=== PATIENT | female | born 1935 | race Caucasian/White ===

== ENCOUNTER 2017-06-23 06:47 | Day surgery (SDC) | payer OTHER ==
[2017-06-15 11:54] VITALS: BMI 27.1
[2017-06-23] MEDS ORDERED: PROPOFOL 20 ML ONE ×2 (08:30)
[2017-06-23] MEDS ORDERED: MIDAZOLAM HCL 2 MG/2 ML SINGLE DOSE VIAL ONE (08:45)
[2017-06-23] MEDS ORDERED: DEXAMETHASONE SOD PHOSPHATE/PF 10 MG/ML SDV ONE (08:45)
[2017-06-23] MEDS ORDERED: BUPIVACAINE HCL/PF (5 MG/ML) 30 ML VIAL IJ ONE ×2 (08:45→10:33)
[2017-06-23] MEDS ORDERED: DEXAMETHASONE SOD PHOSPHATE 4 MG/1 ML VIAL ONE (09:32)
[2017-06-23] MEDS ORDERED: ceFAZolin SODIUM 1 GM VIAL ONE (09:32)
[2017-06-23] MEDS ORDERED: ONDANSETRON 4 MG/2 ML VIAL ONE (09:32)
[2017-06-23] MEDS ORDERED: NEOSTIGMINE METHYLSULFATE 0.5 MG/ML - 10 ML MDV ONE (10:24)
[2017-06-23] MEDS ORDERED: GLYCOPYRROLATE 0.2 MG/1 ML VIAL ONE (10:24)
[2017-06-23] MEDS ORDERED: BUPIVACAINE HCL/PF 0.5% (5MG/ML) 10 ML VIAL ONE (10:33)
[2017-06-23] MEDS ORDERED: IPRATROPIUM BR 0.02% 0.5 MG/2.5 ML VIAL.NEB. NEB ONE (10:49)
[2017-06-23] MEDS ORDERED: ALBUTEROL SO4 0.083% IH SOL 2.5 MG/3 ML VIAL.NEB. NEB ONE (10:49)
[2017-06-23] MEDS ORDERED: ONDANSETRON 4 MG/2 ML VIAL IVPUSH PRN (11:14)
[2017-06-23] MEDS ORDERED: oxyCODONE HCL 5 MG TABLET PO PRN (11:14)
[2017-06-23] MEDS ORDERED: LACTATED RINGERS SOLUTION 1,000 ML IV SCH (11:15)
--- NOTE | 2017-06-23 11:19 | OP ---
DATE OF OPERATION: 06/23/2017 PREOPERATIVE DIAGNOSIS: Large left inguinal hernia. POSTOPERATIVE DIAGNOSIS: Large left inguinal hernia. PROCEDURE: Open left inguinal hernia repair with mesh, left-sided component separation, 8-cm intermediate wound closure. SURGEON: Michele Toure MD GLAZE WIPER: Immanuel Bhakta MD ANESTHESIA: Carmen Saldivar MD (General). ESTIMATED BLOOD LOSS: Minimal. SPECIMEN: Hernia sac and remnant of round ligament. ESTIMATED BLOOD LOSS: Minimal. INDICATION FOR PROCEDURE: This is an 82-year-old female who is known to have a very large left inguinal hernia. She has had this for many, many years and now has become very symptomatic from this large mass, and she has pain in the area. She wishes to have this repaired. On physical examination, she has a large hernia that was able to be reduced with difficulty in the operating room after anesthesia, but the hernia prior to reduction was over the size of a softball. She is here for repair. DESCRIPTION OF PROCEDURE: The patient was identified and appropriately positioned on the operating room table. After placement of general anesthesia, the abdomen and both groins were prepped and draped in the usual sterile fashion with ChloraPrep. An 8-cm left inguinal incision was made and deepened to subcutaneous tissue. The Victorino was divided sharply. The fascia of the external oblique was divided in the direction of its fibers. The ilioinguinal nerve was identified and retracted laterally. There was a very large hernia identified, and it was reduced back into the operative field and pulled out of the groin with blunt and sharp dissection. The sac itself was then taken back all the way down to the level of the internal ring. The internal ring and inguinal floor is markedly attenuated and essentially nonexistent. This clearly was an indirect inguinal hernia sac. She also has a small direct inguinal hernia as well. Due to the very large nature of the sac, it was opened, and the patient had a slider. The attached component of small bowel to the sac wall itself was sharply divided and reduced back beneath the internal ring. The sac was then suture ligated under direct vision with a 2-0 Prolene suture. The sac itself excised. The round ligament was then clamped and tied off with 0 chromic sutures. The specimen was then handed off as port remnant of round ligament, portion of hernia sac. As mentioned earlier, the inguinal floor was essentially nonexistent, and the epigastric vessels identified and retracted inferiorly. The preperitoneal space was then subsequently developed, and due to the generous nature of this defect itself, the diameter is greater than 4.5 to 5 cm; therefore, a Marlex mesh plug was placed into this space. The plug was then anchored with interrupted 0 Prolene sutures. Due to the defect and closing the inguinal floor closing portions of the rectus over , I had to perform a myofascial separation (component separation) to separate off the obliques from the transversus and the junction of the rectus. This was done by lifting the external obliques as well as the internal obliques, and the fascial plan was then subsequently developed medially and brought into the junction of the rectus. At this point, the fascia was then divided with the cautery to allow mobilization of the transversus laterally. The inguinal floor was then reapproximated with 2 layers using attenuated transversus/transversalis fascia, and the inguinal floor was then closed. Due to the generous nature and poor integrity of the floor, a piece of Versatex ProGrip was used on top of the transversus and transversalis fascia. This mesh was cut to the appropriate size, barbs placed on the transversus, and the inguinal nerve root turned to its anatomic position. The fascia of the external oblique was reapproximated with running 3-0 Vicryl suture. Victorino was reapproximated with interrupted inverted 3-0 Vicryl suture and the skin closed with 4-0 Biosyn. Length of the incision approximately 8 cm. At the conclusion of this case, sponge and instrument counts were correct. ATTESTATION: Brief operative note handwritten on the preprinted form. [facility] will be queried prior to giving any narcotics. Warren ASHLEY [id number] cc: Kandy Caceres MD [address] [place] [address]
[2017-06-23] MEDS ORDERED: ALBUTEROL SO4 2.5/IPRATROPIUM 0.5 INH SOL 3 ML VIAL.NEB. NEB PRN (11:30)
[2017-06-23] MEDS ORDERED: ACETAMINOPHEN 325 MG TABLET (FP) ONE ×2 (13:15→19:09)
[2017-06-23] MEDS ORDERED: ACETAMINOPHEN 325 MG TABLET (FP) PO PRN (20:11)
[2017-06-24 06:36] VITALS: BP 133/75; PULSE 93; TEMP 98.7
--- NOTE | 2017-06-29 11:49 | PATH ---
Surgical Pathology Report Patient Name: ALEE HUA Med. Rec. #: [id number] /Age/Gender: 1935 (Age: 82) / F Account: [id number] Location: [facility] AM[facility] Taken: 06/23/2017 Received: 06/23/2017 Reported: 06/29/2017 Physicians: Michele Toure Specimen(s) Received A: REMNANT OF ROUND LIGAMENT LEFT B: LEFT INGUINAL HERNIA SAC Clinical History Left inguinal hernia Final Diagnosis A. REMANENT OF ROUND LIGAMENT, EXCISION: PORTIONS OF FIBROCOLLAGENOUS TISSUE, CONSISTENT WITH LIGAMENT. SKELETAL MUSCLE AND FIBROADIPOSE TISSUE. B. INGUINAL HERNIA SAC, LEFT, REPAIR: HERNIA SAC. Electronically Signed Michelle Gonzalez M.D. Gross Description A. Received in formalin labeled "remnant of round ligament," is a 4.0 x 0.8 x 0.3 cm knutson-brown, irregular portion of soft tissue, consistent with a ligament. The specimen is sectioned and entirely submitted in one cassette. B. Received in formalin labeled "left inguinal hernia sac," is an 11.5 x 4.[address], irregular portion of fibromembranous tissue with attached fat, consistent with a hernia sac. Chief Resource Officer sections are submitted in one cassette. 06/26/2017 [facility]06/26/2017
--- NOTE | 2017-06-29 15:59 | HP ---
DATE OF ADMISSION: 06/24/2017 DATE OF DICTATION: 05/18/2017 REASON FOR ADMISSION: Left inguinal hernia. BRIEF HISTORY: This is an 82-year-old female who approximately a year ago was noted to have a large left inguinal hernia. The patient was symptomatic at that time and presented to the emergency room. At which point, she underwent an urgent CAT scan at [place]. The CT demonstrated a large left inguinal hernia containing loops of sigmoid colon and a fluid-filled sac. There was no obvious obstruction in the loops of colon identified. The patient was managed medically, and she has watched her diet. She has done well for approximately a year and now presents with worsening bouts of episodic pain in the left groin region. She also complains of diffuse bloating at times, associated with the pain. She underwent a repeat CAT scan in April 2017 at [facility]. The repeat CT demonstrated a large left inguinal hernia containing large and small bowel. There was fluid in the sac itself. There was some mild thickening near the neck. There was no obvious obstruction noted. She was also noted to have a fat-containing umbilical hernia as well. Patient states she has no change in her bowel habits, but she has to watch what she eats every day. She has had no nausea and no vomiting lately. PAST MEDICAL HISTORY: Significant for pulmonary issues, hypertension, hypercholesterolemia. She has a history of arthritic changes, skin cancer. PAST SURGICAL HISTORY: Patient has had a multitude of orthopedic procedures ranging from carpal tunnel, back surgery for spinal stenosis, repair of a tendon in the right foot, right knee, left shoulder, and left knee. She has also had a salpingorrhaphy done in the 1960s via a lower midline incision. ALLERGIES: None. MEDICATIONS: Spiriva, Synthroid, simvastatin, aspirin, Serevent, vitamins. SOCIAL HISTORY: Patient does not smoke. She drinks socially. PHYSICAL EXAMINATION: Abdomen: Mildly obese, soft, nontender, nondistended. She has a scar from above the umbilicus all the way down into her proximal labia majora. This is from her surgery in the 1960s for the salpingorrhaphy. She has a very large left inguinal hernia which is only partially reducible with some difficulty in the office. No contralateral finding. IMPRESSION/PLAN: Chronically incarcerated left inguinal hernia. This is an 82-year-old female who clearly is symptomatic from this enlarging left inguinal hernia. At this point, the hernia is so large (the size of my fist) that I would recommend a repair. Due to her prior surgeries, I do not think she is a good candidate laparoscopically, and we have discussed the pros and cons of doing a TAP robotically. The patient should best be managed in an open fashion without mesh if possible. If the tissue is too frayed, she will require a mesh repair. This will be determined at the time of surgery. Patient to be scheduled for an open left inguinal hernia repair with mesh possibly. The indications, alternatives, and complications of the procedure discussed at length. Questions answered. DIANA RAMIREZ M.D. [id number] cc: Kandy Caceres MD, [address]
== END 2017-06-24 07:50 | disposition home or self-care (01) ==
LOC: FASU 06:47 → FM/S 19:00 → FASU 06-24 07:50
PROVIDERS: ATTEND Surgery
PROC: 0JX80ZC Transfer Abdomen Subcutaneous Tissue and Fascia with Skin, Subcutaneous Tissue and Fascia, Open Approach (ICD-10-PCS; 2017-06-23)
PROC: 0YU60JZ Supplement Left Inguinal Region with Synthetic Substitute, Open Approach (ICD-10-PCS; principal; 2017-06-23 09:00)
DX: K40.90 Unilateral inguinal hernia, without obstruction or gangrene, not specified as recurrent (principal)
CPT/HCPCS: 88302-TC; 88304-TC; 94760; J7620